=== PATIENT | female | born 2000 | race Caucasian/White ===

== ENCOUNTER 2023-10-30 19:45 | Inpatient (IN) ==
[2023-10-30 20:30] LABS: Basophils # (auto) 0.06 K/uL (0.00-0.20); Basophils % (auto) 0.8 %; Eosinophils # (auto) 0.07 K/uL (0.00-0.50); Eosinophils % (auto) 0.9 %; Hematocrit (blood only) 40.6 % (37.0-47.0); Hemoglobin 13.3 g/dl (12.0-16.0); Immature Granulocytes # (auto) 0.02 K/uL (0.01-0.20); Immature Granulocytes % (auto) 0.3 %; Lymphocytes # (auto) 3.27 K/uL (1.20-3.40); Lymphocytes % (auto) 41.9 %; Mean Corpuscular Hemoglobin 27.8 pg (25.0-34.0); Mean Corpuscular Hgb Conc 32.8 g/dL (32.0-36.0); Mean Corpuscular Volume 84.9 fL (80.0-100.0); Mean Platelet Volume 9.8 fL (9.4-12.4); Monocytes # (auto) 0.83 K/uL (0.11-0.59); Monocytes % (auto) 10.6 %; Neutrophils # (auto) 3.55 K/uL (1.40-6.50); Neutrophils % (auto) 45.5 %; Platelet Count 306 K/uL (130-400); RDW Coefficient of Variation 12.8 % (11.5-14.5); RDW Standard Deviation 39.4 fL (36.4-46.3); Red Blood Count 4.78 M/uL (4.20-5.40)
--- NOTE | 2023-10-30 20:40 | Emergency Department Note ---
History of Present Illness General Chief complaint: Neuro Symptoms/Deficit Stated complaint: DROOPING ON RT FACE, Time Seen by Provider: 10/30/23 19:53 History of Present Illness Provider complaint: Right-sided facial droop paresthesias 23-year-old female presents emergency department for right-sided facial droop and paresthesias. Patient states she woke up at 5 AM today and started noticing that she was having some right-sided facial droop and paresthesias in her right face. Patient states she went to the football game today and while taking pictures noticed that her face was drooping in the pictures. She reports no difficulty speaking. No difficulty walking. No trauma. No fever. No headache. No neck pain. Home Medications Medication Instructions Recorded Confirmed Type No Known Home Medications 10/30/23 10/30/23 History Allergies Allergy/AdvReac Type Severity Reaction Status Date / Time No Known Allergies Allergy Verified 10/30/23 20:01 Past Med/Surg History Problem List (Updated 10/30/23 @ 23:22 by Lupillo Amaya MD) Stroke-like symptoms (Acute) Lyme disease (Acute) No pertinent past medical history Medical History (Updated 10/30/23 @ 23:22 by Lupillo Amaya MD) No pertinent family history Family History Other No pertinent family history Social History Smoking Status: Never smoker Preferred Language: [place] Feels Safe at Home: Yes Physical Exam Vital Signs Vital Signs - 24 hr 10/30/23 19:49 10/30/23 20:04 10/30/23 21:12 Temperature 36.5 C Temperature Source Temporal Artery Scan Pulse Rate 116 H 91 H 83 Respiratory Rate 18 18 Respiratory Effort / Characteristics Non-Labored Spontaneous Respiratory Depth Normal Blood Pressure 147/93 H 128/52 L Blood Pressure Mean 111 77 Pulse Oximetry 100 100 Oxygen Delivery Method Room Air Room Air Sepsis Recent Fever Within 48 Hours No Sepsis New/Unexplained Change in Mental Status No Sepsis Action Taken by Nursing No Action Required Physical Exam HENT: Exam performed. -Head: Normocephalic and atraumatic. -Right Ear: External ear normal. No mastoid erythema -Left Ear: External ear normal. No mastoid erythema -Mouth/Throat: The oropharynx is clear and moist. No trismus in the jaw. No dental abscesses or uvula swelling. No oropharyngeal exudate or tonsillar abscesses. EYES: Conjunctivae and EOM are normal. Pupils are equal, round, and reactive to light. Right eye exhibits no discharge. Left eye exhibits no discharge. No scleral icterus. NECK: Normal range of motion. Neck supple. No JVD present. No spinous process tenderness present. No rigidity. No tracheal deviation and normal range of motion present. CV: Normal rate, regular rhythm, normal heart sounds and intact distal pulses. There is no peripheral edema. Palpable radial pulses bue. PULM/CHEST: Effort normal and breath sounds normal. No respiratory distress. No stridor. no wheezes. no rales. MUSC/SKEL: Normal range of motion. There is no peripheral edema, tenderness or deformity. NEURO: alert and oriented to person, place, and time. normal strength. No cranial nerve deficit or sensory deficit. Coordination and gait normal. GCS eye subscore is 4. GCS verbal subscore is 5. GCS motor subscore is 6. Cerebellar tests wnl. No clonus. NIHSS: 0 SKIN: Skin is warm and dry. not diaphoretic. PSYCH:normal mood and affect. Behavior is normal. Judgment and thought content normal. Course Course 1952: The patient was evaluated in room C6. A complete history and physical exam was performed Cardiac monitoring: An order was placed for continuous cardiac monitoring. The monitor shows a rate of 90 with sinus rhythm interpreted by nj 2225: Vital signs stable. Imaging is unremarkable. Labs are significant for Lyme positive.Repeat exam shows NIH SS of 0 no appreciable facial droop however the patient states she feels feels like her face is drooping. Patient be treated with doxycycline. Will admit the patient to the medicine service for MRIs and evaluation by neurology. Discussed case with [place] hospitalist Dr. Elder who states he will evaluate the patient for admission. Administered Medications Discontinued Medications Doxycycline Hyclate (Doxycycline Hyclate 100 Mg Cap) 100 mg PO NOW STA Stop: 10/30/23 22:24 Last Admin: 10/30/23 22:39 Dose: 100 mg Documented By: [facility] Ioversol (Optiray 320 125ml) 119 ml IV ONCE ONE Stop: 10/30/23 21:02 Last Admin: 10/30/23 21:01 Dose: 119 ml Documented By: LOBITO Medical Decision Making Laboratory Data Attestation: I reviewed the patient's lab results. 10/30/23 20:05 10/30/23 20:05 Lab Results 10/30/23 10/30/23 Range/Units 20:05 20:27 WBC 7.80 (4.8-10.8) K/ul RBC 4.78 (4.20-5.40) M/uL Hgb 13.3 (12.0-16.0) g/dl Hct 40.6 (37.0-47.0) % MCV 84.9 (80.0-100.0) fL MCH 27.8 (25.0-34.0) pg MCHC 32.8 (32.0-36.0) g/dL RDW Std Deviation 39.4 (36.4-46.3) fL RDW Coeff of Arcenio 12.8 (11.5-14.5) % Plt Count 306 (130-400) K/uL MPV 9.8 (9.4-12.4) fL Immature Gran % (Auto) 0.3 % Neut % (Auto) 45.5 % Lymph % (Auto) 41.9 % Hitchcock % (Auto) 10.6 % Eos % (Auto) 0.9 % Baso % (Auto) 0.8 % Neut # (Auto) 3.55 (1.40-6.50) K/uL Lymph # (Auto) 3.27 (1.20-3.40) K/uL Hitchcock # (Auto) 0.83 H (0.11-0.59) K/uL Eos # (Auto) 0.07 (0.00-0.50) K/uL Baso # (Auto) 0.06 (0.00-0.20) K/uL Immature Gran # (Auto) 0.02 (0.01-0.20) K/uL PT 11.7 (9.0-12.0) Seconds INR 1.1 (0.9-1.1) APTT 29 (21-31) Seconds PTT Ratio 1.1 Sodium 137 (136-145) mmol/L Potassium 3.8 (3.5-5.1) mmol/L Chloride 104 (98-107) mmol/L Carbon Dioxide 27 (21-32) mmol/L Anion Gap 6 (3-11) BUN 12 (6-23) mg/dl Creatinine 0.85 (0.6-1.2) mg/dl Est Cr Clr Drug Dosing 96.0 ml/min Est GFR ( Amer) 110.4 ml/min Est GFR (Non-Af Amer) 95.2 ml/min BUN/Creatinine Ratio 14.1 (10-20) Glucose 94 (70-99(Fasting)) mg/dl POC Glucose 92 (70-99) mg/dl Calcium 9.6 (8.6-10.3) mg/dl Magnesium 2.0 (1.7-2.4) mg/dl Total Bilirubin 0.4 (0.2-1.0) mg/dl AST 20 (13-39) U/L ALT 22 (7-52) U/L Alkaline Phosphatase 66 (34-104) U/L Troponin I High Sens < 2.3 (0-14) pg/ml Total Protein 8.2 (6.0-8.3) gm/dl Albumin 4.9 (3.4-5.0) gm/dl Globulin 3.3 (2.5-4.0) gm/dl Albumin/Globulin Ratio 1.5 (0.9-2) HCG, Quant < 1 mIU/ml Anaplasma Smear See Comment Babesia Smear See Comment Lyme Disease Screen Positive H (Negative) Lyme Tier 2 IgG Confirm Positive H (Negative) Lyme Tier 2 IgM Confirm Positive H (Negative) Blood Type O Positive Antibody Screen NEGATIVE Imaging Data Attestation: I personally reviewed and interpreted this imaging study as follows: My Impression: Chest x-ray negative. Airway clear. No pneumothorax. No consolidation. No cardiomegaly or cephalization.. No free air under the diaphragm. No fractures of the skeletal structures. Radiologist's Impression: Head CT 10/30/23 20:00 CR Exam(s): CT HEAD Without Contrast EXAM: CT Head Without Intravenous Contrast CLINICAL HISTORY: Reason for exam: neuro deficit, acute stroke suspected. TECHNIQUE: Axial computed tomography images of the head/brain without intravenous contrast. Automated exposure control was utilized for the study. A dose lowering technique was utilized adhering to the principles of ALARA. COMPARISON: No relevant prior studies available. FINDINGS: Brain: Unremarkable. No hemorrhage. No significant white matter disease. No edema. Ventricles: Unremarkable. No ventriculomegaly. Bones/joints: Unremarkable. No acute fracture. Soft tissues: Unremarkable. Sinuses: Unremarkable as visualized. No acute sinusitis. Mastoid air cells: Unremarkable as visualized. No mastoid effusion. IMPRESSION: Normal head/brain CT. Communications: Call Doctor Stroke Electronically signed by: Tarik Ramires MD 10/30/23 21:28 PM Head CTA 10/30/23 20:00 CR Exam(s): CTA HEAD With Contrast IV Amt: 119 cc opti 320 EXAM: CT Angiography Head With Intravenous Contrast CLINICAL HISTORY: Reason for exam: neuro deficit, acute stroke suspected. TECHNIQUE: Axial computed tomographic angiography images of the head with intravenous contrast. Automated exposure control was utilized for the study. A dose lowering technique was utilized adhering to the principles of ALARA. MIP reconstructed images were created and reviewed. CONTRAST: Patient received 119 cc opti 320 of IV contrast COMPARISON: No relevant prior studies available. FINDINGS: Right internal carotid artery: No acute findings. Intracranial segment is patent with no significant stenosis. No aneurysm. Right anterior cerebral artery: Unremarkable. No occlusion or significant stenosis. No aneurysm. Right middle cerebral artery: Unremarkable. No occlusion or significant stenosis. No aneurysm. Right posterior cerebral artery: Unremarkable. No occlusion or significant stenosis. No aneurysm. Right vertebral artery: Unremarkable as visualized. Left internal carotid artery: No acute findings. Intracranial segment is patent with no significant stenosis. No aneurysm. Left anterior cerebral artery: Unremarkable. No occlusion or significant stenosis. No aneurysm. Left middle cerebral artery: Unremarkable. No occlusion or significant stenosis. No aneurysm. Left posterior cerebral artery: Unremarkable. No occlusion or significant stenosis. No aneurysm. Left vertebral artery: Unremarkable as visualized. Basilar artery: Unremarkable. No occlusion or significant stenosis. No aneurysm. IMPRESSION: Normal head CTA. Communications: Call Doctor Stroke Electronically signed by: Tarik Ramires MD 10/30/23 21:29 PM Neck CTA 10/30/23 20:00 CR Exam(s): CTA NECK With Contrast IV Amt: 119 cc opti 320 EXAM: CT Angiography Neck With Intravenous Contrast CLINICAL HISTORY: Reason for exam: neuro deficit, acute stroke suspected. TECHNIQUE: Routine carotid CT angiography protocol was performed with intravenous contrast. NASCET criteria using the distal ICAs for comparison were used for evaluation of stenoses. Automated exposure control was utilized for the study. A dose lowering technique was utilized adhering to the principles of ALARA. MIP reconstructed images were created and reviewed. CONTRAST: Patient received 119 cc opti 320 of IV contrast COMPARISON: None. FINDINGS: VASCULATURE: Right common carotid artery: Unremarkable. No occlusion or significant stenosis. No dissection. Right internal carotid artery: Unremarkable. Extracranial segment is patent with no occlusion or significant stenosis. No dissection. Right external carotid artery: Unremarkable. No occlusion. Right vertebral artery: Unremarkable. No occlusion or significant stenosis. No dissection. Left common carotid artery: Unremarkable. No occlusion or significant stenosis. No dissection. Left internal carotid artery: Unremarkable. Extracranial segment is patent with no occlusion or significant stenosis. No dissection. Left external carotid artery: Unremarkable. No occlusion. Left vertebral artery: Unremarkable. No occlusion or significant stenosis. No dissection. NECK: Bones/joints: Unremarkable. No acute fracture. Soft tissues: Unremarkable. Lung apices: Clear. CAROTID STENOSIS REFERENCE USING NASCET CRITERIA: % ICA stenosis = (1 - narrowest ICA diameter/diameter of distal cervical ICA) x 100. Mild - <50% stenosis. Moderate - 50-69% stenosis. Severe - 70-94% stenosis. Near occlusion - 95-99% stenosis. Occluded - 100% stenosis. IMPRESSION: Negative CTA neck. Communications: Call Doctor Stroke Electronically signed by: Tarik Ramires MD 10/30/23 21:30 PM ECG Data Attestation: I personally reviewed and interpreted this ECG as follows: Rate (beats per minute): 81 Rhythm: + normal sinus ECG Intervals/blocks: + Normal MS and + Normal QT-c ECG ST segments: + Normal ST segments Additional Comments: QRS 70 MDM Narrative 3: The patient was evaluated in room C6. A complete history and physical exam was performed Cardiac monitoring: An order was placed for continuous cardiac monitoring. The monitor shows a rate of 90 with sinus rhythm interpreted by me 2225: Vital signs stable. Imaging is unremarkable. Labs are significant for Lyme positive.Repeat exam shows NIH SS of 0 no appreciable facial droop however the patient states she feels feels like her face is drooping. Patient be treated with doxycycline. Will admit the patient to the medicine service for MRIs and evaluation by neurology. Discussed case with [place] hospitalist Dr. Elder who states he will evaluate the patient for admission. Impression & Plan Lyme disease, Stroke-like symptoms Discharge Plan Visit Data Chief Complaint: Neuro Symptoms/Deficit Stated Complaint: DROOPING ON RT FACE, ED Provider: Lupillo Amaya Discharge Problem: Lyme disease, Stroke-like symptoms Patient Disposition: Being Evaluated by Hospitalist Forms Stand Alone Forms: [facility] Prescriptions Prescriptions: No Action No Known Home Medications Referrals Referrals: PCP,NO [Physician] -
[2023-10-30 20:46] LABS: Alanine Aminotransferase 22 U/L (7-52); Albumin Globulin Ratio 1.5 (0.9-2); Albumin Level 4.9 gm/dl (3.4-5.0); Alkaline Phosphatase 66 U/L (34-104); Anion Gap 6 (3-11); Aspartate Aminotransferase 20 U/L (13-39); BUN Creatinine Ratio 14.1 (10-20); Bilirubin,Total 0.4 mg/dl (0.2-1.0); Blood Urea Nitrogen 12 mg/dl (6-23); Calcium 9.6 mg/dl (8.6-10.3); Carbon Dioxide 27 mmol/L (21-32); Chloride 104 mmol/L (98-107); Est GFR (African American) 110.4 ml/min; Est GFR (Non-African American) 95.2 ml/min; Globulin 3.3 gm/dl (2.5-4.0); Glucose 94 mg/dl (70-99(Fasting)); Potassium 3.8 mmol/L (3.5-5.1); Sodium 137 mmol/L (136-145); Total Protein 8.2 gm/dl (6.0-8.3)
[2023-10-30 20:52] LABS: Troponin I High Sensitivity < 2.3 pg/ml (0-14)
[2023-10-30 20:58] LABS: INR 1.1 (0.9-1.1); Partial Thromboplastin Ratio 1.1; Partial Thromboplastin Time 29 Seconds (21-31); Prothrombin Time 11.7 Seconds (9.0-12.0)
[2023-10-30] MEDS: OPTIRAY 320 125ml IV ONE (21:01)
--- NOTE | 2023-10-30 21:29 | CT Scan Report ---
Exam(s): CT HEAD Without Contrast EXAM: CT Head Without Intravenous Contrast CLINICAL HISTORY: Reason for exam: neuro deficit, acute stroke suspected. TECHNIQUE: Axial computed tomography images of the head/brain without intravenous contrast. Automated exposure control was utilized for the study. A dose lowering technique was utilized adhering to the principles of ALARA. COMPARISON: No relevant prior studies available. FINDINGS: Brain: Unremarkable. No hemorrhage. No significant white matter disease. No edema. Ventricles: Unremarkable. No ventriculomegaly. Bones/joints: Unremarkable. No acute fracture. Soft tissues: Unremarkable. Sinuses: Unremarkable as visualized. No acute sinusitis. Mastoid air cells: Unremarkable as visualized. No mastoid effusion. IMPRESSION: Normal head/brain CT. Communications: Call Doctor Stroke Electronically signed by: Tarik Ramires MD 10/30/23 21:28 PM
--- NOTE | 2023-10-30 21:30 | CT Scan Report ---
Exam(s): CTA HEAD With Contrast IV Amt: 119 cc opti 320 EXAM: CT Angiography Head With Intravenous Contrast CLINICAL HISTORY: Reason for exam: neuro deficit, acute stroke suspected. TECHNIQUE: Axial computed tomographic angiography images of the head with intravenous contrast. Automated exposure control was utilized for the study. A dose lowering technique was utilized adhering to the principles of ALARA. MIP reconstructed images were created and reviewed. CONTRAST: Patient received 119 cc opti 320 of IV contrast COMPARISON: No relevant prior studies available. FINDINGS: Right internal carotid artery: No acute findings. Intracranial segment is patent with no significant stenosis. No aneurysm. Right anterior cerebral artery: Unremarkable. No occlusion or significant stenosis. No aneurysm. Right middle cerebral artery: Unremarkable. No occlusion or significant stenosis. No aneurysm. Right posterior cerebral artery: Unremarkable. No occlusion or significant stenosis. No aneurysm. Right vertebral artery: Unremarkable as visualized. Left internal carotid artery: No acute findings. Intracranial segment is patent with no significant stenosis. No aneurysm. Left anterior cerebral artery: Unremarkable. No occlusion or significant stenosis. No aneurysm. Left middle cerebral artery: Unremarkable. No occlusion or significant stenosis. No aneurysm. Left posterior cerebral artery: Unremarkable. No occlusion or significant stenosis. No aneurysm. Left vertebral artery: Unremarkable as visualized. Basilar artery: Unremarkable. No occlusion or significant stenosis. No aneurysm. IMPRESSION: Normal head CTA. Communications: Call Doctor Stroke Electronically signed by: Tarik Ramires MD 10/30/23 21:29 PM
[2023-10-30 21:31] LABS: Lyme Screen Rflx Confirmation Positive (Negative)
--- NOTE | 2023-10-30 21:31 | CT Scan Report ---
Exam(s): CTA NECK With Contrast IV Amt: 119 cc opti 320 EXAM: CT Angiography Neck With Intravenous Contrast CLINICAL HISTORY: Reason for exam: neuro deficit, acute stroke suspected. TECHNIQUE: Routine carotid CT angiography protocol was performed with intravenous contrast. NASCET criteria using the distal ICAs for comparison were used for evaluation of stenoses. Automated exposure control was utilized for the study. A dose lowering technique was utilized adhering to the principles of ALARA. MIP reconstructed images were created and reviewed. CONTRAST: Patient received 119 cc opti 320 of IV contrast COMPARISON: None. FINDINGS: VASCULATURE: Right common carotid artery: Unremarkable. No occlusion or significant stenosis. No dissection. Right internal carotid artery: Unremarkable. Extracranial segment is patent with no occlusion or significant stenosis. No dissection. Right external carotid artery: Unremarkable. No occlusion. Right vertebral artery: Unremarkable. No occlusion or significant stenosis. No dissection. Left common carotid artery: Unremarkable. No occlusion or significant stenosis. No dissection. Left internal carotid artery: Unremarkable. Extracranial segment is patent with no occlusion or significant stenosis. No dissection. Left external carotid artery: Unremarkable. No occlusion. Left vertebral artery: Unremarkable. No occlusion or significant stenosis. No dissection. NECK: Bones/joints: Unremarkable. No acute fracture. Soft tissues: Unremarkable. Lung apices: Clear. CAROTID STENOSIS REFERENCE USING NASCET CRITERIA: % ICA stenosis = (1 - narrowest ICA diameter/diameter of distal cervical ICA) x 100. Mild - <50% stenosis. Moderate - 50-69% stenosis. Severe - 70-94% stenosis. Near occlusion - 95-99% stenosis. Occluded - 100% stenosis. IMPRESSION: Negative CTA neck. Communications: Call Doctor Stroke Electronically signed by: Tarik Ramires MD 10/30/23 21:30 PM
[2023-10-30 22:05] LABS: Lyme Ab IgG 2nd Tier Confirm Positive (Negative)
[2023-10-30 22:06] LABS: Lyme Ab IgM 2nd Tier Confirm Positive (Negative)
[2023-10-30] MEDS: DOXYCYCLINE HYCLATE 100 MG CAP PO STA (22:39)
--- NOTE | 2023-10-30 23:23 | History & Physical Report ---
Date of Service October 30, 2023 Assessment & Plan (1) Stroke-like symptoms: Plan: 23-year-old female with no significant past medical history comes because of right facial droop starting today morning around 5 AM. When patient woke up in the morning she noticed some slight right facial droop. She thought it was from stress. She went to football match. No other weakness or ybwm-meb-esupdxg feelings. She walked a lot during the day. Even in the photograph she noticed some slight right facial droop and decided come to the ER. Patient states she was able to eat solid food okay. But states she has some trouble swallowing liquids through straws. And when blowing the air out she noticed it was somewhat leaking from the right cheek. Her speech is okay. Denies any fevers. No headache. No dizziness. Able to close eyes tight. Able to raise eyebrows ok. Denies any numbness in the face. No fevers. No cough. No chest pain or shortness of breath. No nausea. No abdominal pain. Normal bowel and bladder movements. Her Lyme screen came back positive in the ER. Her CT head and CTA head and neck were unremarkable. Patient states on August 25 she picked up tick from her body but she thinks it was not there for long. Denies any rash. Curr ently resting comfortably and hemodynamic stable. 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 for further recommendation Lyme disease Doxy and Rocephin DVT prophylaxis SCDs Disposition Telemetry Full code. History of Present Illness Chief Complaint: Right facial droop Primary Care Provider: Aisha Rojas MD 23-year-old female with no significant past medical history comes because of right facial droop starting today morning around 5 AM. When patient woke up in the morning she noticed some slight right facial droop. She thought it was from stress. She went to football match. No other weakness or cily-ivs-rlifgvz feelings. She walked a lot during the day. Even in the photograph she noticed some slight right facial droop and decided come to the ER. Patient states she was able to eat solid food okay. But states she has some trouble swallowing liquids through straws. And when blowing the air out she noticed it was somewhat leaking from the right cheek. Her speech is okay. Denies any fevers. No headache. No dizziness. Able to close eyes tight. Able to raise eyebrows ok. Denies any numbness in the face. No fevers. No cough. No chest pain or shortness of breath. No nausea. No abdominal pain. Normal bowel and bladder movements. Her Lyme screen came back positive in the ER. Her CT head and CTA head and neck were unremarkable. Patient states on August 25 she picked up tick from her body but she thinks it was not there for long. Denies any rash. Currently resting comfortably and hemodynamic stable. Past medical history. None as per patient Past surgical history. None as per patient. Social history. Denies smoking. Alcohol occasional. No drug use. Family history. Grandfather had colon cancer. Allergies Allergy/AdvReac Type Severity Reaction Status Date / Time No Known Allergies Allergy Verified 10/30/23 20:01 Home Medications Medication Instructions Recorded Confirmed Type No Known Home Medications 10/30/23 10/30/23 History Past Med/Surg History Problem List (Updated 10/30/23 @ 23:22 by Lupillo Amaya MD) Stroke-like symptoms (Acute) Lyme disease (Acute) No pertinent past medical history Medical History (Updated 10/30/23 @ 23:22 by Lupillo Amaya MD) No pertinent family history Family History Other No pertinent family history Social History Smoking Status: Never smoker Hx Alcohol Use: Yes Hx Substance Use: No Preferred Language: Occitan Communication Ability: Effective Pick Up Driver Required: No Beliefs That Will Affect Care: None Current Living Situation: Significant Other Other Information That Helps Us Care for You: No Feels Safe at Home: Yes Review of Systems Review of Systems: All systems reviewed & are unremarkable except as noted in HPI & below Physical Exam Physical Exam: General- Not in distress Head- atraumatic Eyes- PERRL. ENT- oropharynx clear Neck- supple, no JVD. Lungs- clear to auscultation no wheezing or crackles Heart- regular rate and rhythm; no murmur, no gallop. Abdomen- normal bowel sounds, soft, nontender, no distension Extremities- no pretibial edema, no erytehma seen Neuro- alert, oriented x 3; PERRL, EOMI; subtle right facial droop; no dysarthria; motor 5/5 bilaterally; co ordination of movements normal,No pronator drift, Sensations intact, :Position sense intact. Results & Data Results & Data Vital Signs (Past 12 Hours) Vital Signs Temp Pulse Resp BP Pulse Ox O2 Del Method 10/30/23 21:12 83 18 128/52 L 100 Room Air 10/30/23 20:04 91 H 10/30/23 19:49 36.5 C 116 H 18 147/93 H 100 Room Air Diagnostic Findings Laboratory Results WBC 7.80 K/ul (4.8-10.8) 10/30/23 20:05 RBC 4.78 M/uL (4.20-5.40) 10/30/23 20:05 Hgb 13.3 g/dl (12.0-16.0) 10/30/23 20:05 Hct 40.6 % (37.0-47.0) 10/30/23 20:05 MCV 84.9 fL (80.0-100.0) 10/30/23 20:05 MCH 27.8 pg (25.0-34.0) 10/30/23 20:05 MCHC 32.8 g/dL (32.0-36.0) 10/30/23 20:05 RDW Std Deviation 39.4 fL (36.4-46.3) 10/30/23 20:05 RDW Coeff of Arcenio 12.8 % (11.5-14.5) 10/30/23 20:05 Plt Count 306 K/uL (130-400) 10/30/23 20:05 MPV 9.8 fL (9.4-12.4) 10/30/23 20:05 Immature Gran % (Auto) 0.3 % 10/30/23 20:05 Neut % (Auto) 45.5 % 10/30/23 20:05 Lymph % (Auto) 41.9 % 10/30/23 20:05 [place] % (Auto) 10.6 % 10/30/23 20:05 Eos % (Auto) 0.9 % 10/30/23 20:05 Baso % (Auto) 0.8 % 10/30/23 20:05 Neut # (Auto) 3.55 K/uL (1.40-6.50) 10/30/23 20:05 Lymph # (Auto) 3.27 K/uL (1.20-3.40) 10/30/23 20:05 [place] # (Auto) 0.83 K/uL (0.11-0.59) H 10/30/23 20:05 Eos # (Auto) 0.07 K/uL (0.00-0.50) 10/30/23 20:05 Baso # (Auto) 0.06 K/uL (0.00-0.20) 10/30/23 20:05 Immature Gran # (Auto) 0.02 K/uL (0.01-0.20) 10/30/23 20:05 PT 11.7 Seconds (9.0-12.0) 10/30/23 20:05 INR 1.1 (0.9-1.1) 10/30/23 20:05 APTT 29 Seconds (21-31) 10/30/23 20:05 PTT Ratio 1.1 10/30/23 20:05 Sodium 137 mmol/L (136-145) 10/30/23 20:05 Potassium 3.8 mmol/L (3.5-5.1) 10/30/23 20:05 Chloride 104 mmol/L (98-107) 10/30/23 20:05 Carbon Dioxide 27 mmol/L (21-32) 10/30/23 20:05 Anion Gap 6 (3-11) 10/30/23 20:05 BUN 12 mg/dl (6-23) 10/30/23 20:05 Creatinine 0.85 mg/dl (0.6-1.2) 10/30/23 20:05 Est Cr Clr Drug Dosing 96.0 ml/min 10/30/23 20:05 Est GFR ( Amer) 110.4 ml/min 10/30/23 20:05 Est GFR (Non-Af Amer) 95.2 ml/min 10/30/23 20:05 BUN/Creatinine Ratio 14.1 (10-20) 10/30/23 20:05 Glucose 94 mg/dl (70-99(Fasting)) 10/30/23 20:05 POC Glucose 92 mg/dl (70-99) 10/30/23 20:27 Calcium 9.6 mg/dl (8.6-10.3) 10/30/23 20:05 Magnesium 2.0 mg/dl (1.7-2.4) 10/30/23 20:05 Total Bilirubin 0.4 mg/dl (0.2-1.0) 10/30/23 20:05 AST 20 U/L (13-39) 10/30/23 20:05 ALT 22 U/L (7-52) 10/30/23 20:05 Alkaline Phosphatase 66 U/L (34-104) 10/30/23 20:05 Troponin I High Sens < 2.3 pg/ml (0-14) 10/30/23 20:05 Total Protein 8.2 gm/dl (6.0-8.3) 10/30/23 20:05 Albumin 4.9 gm/dl (3.4-5.0) 10/30/23 20:05 Globulin 3.3 gm/dl (2.5-4.0) 10/30/23 20:05 Albumin/Globulin Ratio 1.5 (0.9-2) 10/30/23 20:05 HCG, Quant < 1 mIU/ml 10/30/23 20:05 Anaplasma Smear See Comment 10/30/23 20:05 Babesia Smear See Comment 10/30/23 20:05 Lyme Disease Screen Positive (Negative) H 10/30/23 20:05 Lyme Tier 2 IgG Confirm Positive (Negative) H 10/30/23 20:05 Lyme Tier 2 IgM Confirm Positive (Negative) H 10/30/23 20:05 Blood Type O Positive 10/30/23 20:05 Antibody Screen NEGATIVE 10/30/23 20:[address] 10/30/23 20:00 CR Exam(s): CT HEAD Without Contrast EXAM: CT Head Without Intravenous Contrast CLINICAL HISTORY: Reason for exam: neuro deficit, acute stroke suspected. TECHNIQUE: Axial computed tomography images of the head/brain without intravenous contrast. Automated exposure control was utilized for the study. A dose lowering technique was utilized adhering to the principles of ALARA. COMPARISON: No relevant prior studies available. FINDINGS: Brain: Unremarkable. No hemorrhage. No significant white matter disease. No edema. Ventricles: Unremarkable. No ventriculomegaly. Bones/joints: Unremarkable. No acute fracture. Soft tissues: Unremarkable. Sinuses: Unremarkable as visualized. No acute sinusitis. Mastoid air cells: Unremarkable as visualized. No mastoid effusion. IMPRESSION: Normal head/brain CT. Communications: Call Doctor Stroke Electronically signed by: Tarik Ramires MD 10/30/23 21:28 PM Head CTA 10/30/23 20:00 CR Exam(s): CTA HEAD With Contrast IV Amt: 119 cc opti 320 EXAM: CT Angiography Head With Intravenous Contrast CLINICAL HISTORY: Reason for exam: neuro deficit, acute stroke suspected. TECHNIQUE: Axial computed tomographic angiography images of the head with intravenous contrast. Automated exposure control was utilized for the study. A dose lowering technique was utilized adhering to the principles of ALARA. MIP reconstructed images were created and reviewed. CONTRAST: Patient received 119 cc opti 320 of IV contrast COMPARISON: No relevant prior studies available. FINDINGS: Right internal carotid artery: No acute findings. Intracranial segment is patent with no significant stenosis. No aneurysm. Right anterior cerebral artery: Unremarkable. No occlusion or significant stenosis. No aneurysm. Right middle cerebral artery: Unremarkable. No occlusion or significant stenosis. No aneurysm. Right posterior cerebral artery: Unremarkable. No occlusion or significant stenosis. No aneurysm. Right vertebral artery: Unremarkable as visualized. Left internal carotid artery: No acute findings. Intracranial segment is patent with no significant stenosis. No aneurysm. Left anterior cerebral artery: Unremarkable. No occlusion or significant stenosis. No aneurysm. Left middle cerebral artery: Unremarkable. No occlusion or significant stenosis. No aneurysm. Left posterior cerebral artery: Unremarkable. No occlusion or significant stenosis. No aneurysm. Left vertebral artery: Unremarkable as visualized. Basilar artery: Unremarkable. No occlusion or significant stenosis. No aneurysm. IMPRESSION: Normal head CTA. Communications: Call Doctor Stroke Electronically signed by: Tarik Ramires MD 10/30/23 21:29 PM Neck CTA 10/30/23 20:00 CR Exam(s): CTA NECK With Contrast IV Amt: 119 cc opti 320 EXAM: CT Angiography Neck With Intravenous Contrast CLINICAL HISTORY: Reason for exam: neuro deficit, acute stroke suspected. TECHNIQUE: Routine carotid CT angiography protocol was performed with intravenous contrast. NASCET criteria using the distal ICAs for comparison were used for evaluation of stenoses. Automated exposure control was utilized for the study. A dose lowering technique was utilized adhering to the principles of ALARA. MIP reconstructed images were created and reviewed. CONTRAST: Patient received 119 cc opti 320 of IV contrast COMPARISON: None. FINDINGS: VASCULATURE: Right common carotid artery: Unremarkable. No occlusion or significant stenosis. No dissection. Right internal carotid artery: Unremarkable. Extracranial segment is patent with no occlusion or significant stenosis. No dissection. Right external carotid artery: Unremarkable. No occlusion. Right vertebral artery: Unremarkable. No occlusion or significant stenosis. No dissection. Left common carotid artery: Unremarkable. No occlusion or significant stenosis. No dissection. Left internal carotid artery: Unremarkable. Extracranial segment is patent with no occlusion or significant stenosis. No dissection. Left external carotid artery: Unremarkable. No occlusion. Left vertebral artery: Unremarkable. No occlusion or significant stenosis. No dissection. NECK: Bones/joints: Unremarkable. No acute fracture. Soft tissues: Unremarkable. Lung apices: Clear. CAROTID STENOSIS REFERENCE USING NASCET CRITERIA: % ICA stenosis = (1 - narrowest ICA diameter/diameter of distal cervical ICA) x 100. Mild - <50% stenosis. Moderate - 50-69% stenosis. Severe - 70-94% stenosis. Near occlusion - 95-99% stenosis. Occluded - 100% stenosis. IMPRESSION: Negative CTA neck. Communications: Call Doctor Stroke Electronically signed by: Tarik Ramires MD 10/30/23 21:30 PM ECG Additional Comments: ECG. Normal sinus rhythm rate of 81. No acute ST changes seen. Code Status & VTE Plan VTE Prophylaxis Plan VTE Prophylaxis will be ordered: Yes
[2023-10-31] MEDS ORDERED: PHARMACIST DISCHARGE MED REC CONSULT PRN (01:01)
[2023-10-31] MEDS ORDERED: NITROGLYCERIN SL 0.4 MG/TAB TAB SL PRN (01:01)
[2023-10-31] MEDS ORDERED: ACETAMINOPHEN 325 MG TAB PO PRN (01:01)
[2023-10-31] MEDS: cefTRIAXone SODIUM 2,000 MG/50 ML BAG IV SCH (01:59)
[2023-10-31] MEDS: SODIUM CHLORIDE 0.9% 1,000 ML IV SCH (01:59)
[2023-10-31 07:40] LABS: Basophils # (auto) 0.06 K/uL (0.00-0.20); Basophils % (auto) 0.4 %; Eosinophils # (auto) 0.07 K/uL (0.00-0.50); Eosinophils % (auto) 0.5 %; Hematocrit (blood only) 37.9 % (37.0-47.0); Hemoglobin 12.4 g/dl (12.0-16.0); Immature Granulocytes # (auto) 0.04 K/uL (0.01-0.20); Immature Granulocytes % (auto) 0.3 %; Lymphocytes # (auto) 2.08 K/uL (1.20-3.40); Lymphocytes % (auto) 15.4 %; Mean Corpuscular Hemoglobin 27.7 pg (25.0-34.0); Mean Corpuscular Hgb Conc 32.7 g/dL (32.0-36.0); Mean Corpuscular Volume 84.6 fL (80.0-100.0); Mean Platelet Volume 9.8 fL (9.4-12.4); Monocytes # (auto) 1.05 K/uL (0.11-0.59); Monocytes % (auto) 7.7 %; Neutrophils # (auto) 10.25 K/uL (1.40-6.50); Neutrophils % (auto) 75.7 %; Platelet Count 268 K/uL (130-400); RDW Coefficient of Variation 12.9 % (11.5-14.5); RDW Standard Deviation 39.8 fL (36.4-46.3); Red Blood Count 4.48 M/uL (4.20-5.40); White Blood Count 13.55 K/ul (4.8-10.8)
--- NOTE | 2023-10-31 07:41 | XRay Report ---
XR chest 1V portable HISTORY: 23 years-old Female neuro deficit, acute stroke suspected acute strokelike symptoms COMPARISON: 10/30/2018 TECHNIQUE: AP view of the chest FINDINGS: Heart size is normal. The lungs are clear. No pneumothorax or pleural effusion. The bones appear norm al. IMPRESSION: Normal exam. ACT 112: Negative or not required by law. The above report was generated using voice recognition software. It may contain grammatical, syntax o r spelling errors. Electronically signed by: Tera Morton M.D. 10/31/2023 7:40 AM
[2023-10-31 07:59] LABS: Pregnancy Test, Urine Negative (Negative)
[2023-10-31 07:59] LABS: BUN Creatinine Ratio 12.5 (10-20); Calcium 8.9 mg/dl (8.6-10.3); Chol HDL Ratio 2.6 (0-5); Creatinine Clr Calc Pharmacy 109.2 ml/min; Est GFR (African American) 134.9 ml/min; Est GFR (Non-African American) 116.4 ml/min; Potassium 3.9 mmol/L (3.5-5.1)
[2023-10-31] MEDS: DOXYCYCLINE HYCLATE 100 MG CAP PO SCH (08:26)
[2023-10-31 08:42] LABS: Estimated Average Glucose 123 mg/dl; Hemoglobin A1C 5.9 % (4.5-5.6)
[2023-10-31 09:26] LABS: Amphetamines+Metham, Urine Neg (Neg); Barbiturates, Urine Neg (Neg); Benzodiazepine, Urine Neg (Neg); Cocaine, Urine Neg (Neg); Fentanyl, Urine Neg (Neg); MDMA (Ecstacy), Urine Neg (Neg); Marijuana, Urine Neg (Neg); Methadone, Urine Neg (Neg); Opiate, Urine Neg (Neg); Phencyclidine, Urine Neg (Neg)
--- NOTE | 2023-10-31 09:51 | Neurology Consultation ---
Date of Consultation October 31, 2023 Assessment & Plan (1) Lyme disease: Emily Seth is a 23 yo F presenting with a R bells palsy secondary to lyme disease. No complicating features, facial weakness is mild. -- Doxycyline for 21 days -- Prednisone 40mg x5 days, no taper -- Eye precautions to prevent corneal abrasion -- No further neurologic workup recommended Telehealth Consultation Telehealth Information Telehealth Information: I performed this visit using a real-time telehealth connection between my location and the patients location ([facility]). After connecting through interactive tele-video, patient was identified by name and date of and/or wristband check.Patient (or authorized healthcare technical account representative) was informed that this was a telemedicine visit and it was being conducted confidentially over secure lines. My office door was closed and no one else was present in the room with me.Patient (or authorized healthcare technical account representative) provided consent to proceed with the visit, expressed an understanding of privacy and security of the telemedicine visit, and gave permission to have a hospital technical account representative in the room in order to assist with the visit and to conduct portions of the visit, as needed. I informed the patient (or authorized healthcare technical account representative) that I reviewed their record and presented the opportunity for them to ask any questions regarding the visit today. The patient agreed to participate. History of Present Illness Reason for Consultation: R facial droop Requesting Physician: Dr. Rachel Attending Physician: Will Rachel MD History of Present Illness Emily Seth is a 23 yo F presenting with R facial droop, tested positive for lyme disease in the ED. She reports no other symptoms, no headache, no appendicular numbness or weakness, no change in speech or vision. Allergies Allergy/AdvReac Type Severity Reaction Status Date / Time No Known Allergies Allergy Verified 10/30/23 20:01 Home Medications Medication Instructions Recorded Confirmed Type No Known Home Medications 10/30/23 10/30/23 History Patient History Medical History (Updated 10/30/23 @ 23:22 by Lupillo Amaya MD) No pertinent family history Family History Other No pertinent family history Social History Smoking Status: Never smoker Hx Alcohol Use: Yes Hx Substance Use: No Preferred Language: Slovenian Communication Ability: Effective Nursery Technician Required: No Beliefs That Will Affect Care: None Current Living Situation: Significant Other Other Information That Helps Us Care for You: No Feels Safe at Home: Yes Review of Systems +R facial weakness Physical Exam +R peripheral facial weakness Results & Data Vital Signs (Past 12 Hours) Vital Signs Temp Pulse Pulse Resp BP Pulse Ox O2 Del Method 10/31/23 07:36 95 H 10/31/23 07:33 36.7 C 81 20 112/65 96 Room Air 10/31/23 04:29 36.4 C L 70 18 114/68 98 Room Air 10/31/23 01:04 73 10/31/23 01:04 36.7 C 74 18 112/75 100 Room Air 10/31/23 00:40 Room Air Laboratory Results +lyme titer Diagnostic Findings CT/CTA unremarkable
[2023-10-31] MEDS: predniSONE 20 MG TAB PO SCH (10:35)
[2023-10-31 11:13] VITALS: BP 113/71; PULSE 84; RESP 18; TEMP 97.9; O2SAT 100
--- NOTE | 2023-10-31 11:30 | Hospitalist Progress Note ---
Date of Service October 31, 2023 Assessment & Plan (1) Lyme disease: Plan: 23-year-old female with no significant past medical history comes because of right facial droop starting today morning around 5 AM. When patient woke up in the morning she noticed some slight right facial droop. She thought it was from stress. She went to football match. No other weakness or daoo-buo-lryvmdu feelings. She walked a lot during the day. Even in the photograph she noticed some slight right facial droop and decided come to the ER. Patient states she was able to eat solid food okay. But states she has some trouble swallowing liquids through straws. And when blowing the air out she noticed it was somewhat leaking from the right cheek. Her speech is okay. Denies any fevers. No headache. No dizziness. Able to close eyes tight. Able to raise eyebrows ok. Denies any numbness in the face. No fevers. No cough. No chest pain or shortness of breath. No nausea. No abdominal pain. Normal bowel and bladder movements. Her Lyme screen came back positive in the ER. Her CT head and CTA head and neck were unremarkable. Patient states on August 25 she picked up tick from her body but she thinks it was not there for long. Denies any rash. Currently resting comfortably and hemodynamic stable. 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 Admission and Anticipated Discharge Date Admission Date: October 30, 2023 Subjective 10/31/2023 Patient was seen and examined in telemetry unit in presence of the She still has right facial droop without any other neurological symptoms She has been eating and drinking well and denies any other significant symptoms She was seen by the neurologist and advised that she could go home Review of Systems Review of Systems: All systems reviewed and unremarkable except as noted below Physical Exam Physical Exam: Lying in bed without any distress Constitutional: average body habitus; not ill appearing Eyes: PERRL, conjunctivae normal, anicteric sclerae ENMT: external ear and nose normal, oropharynx normal Neck: trachea midline, no thyromegaly Respiratory: no respiratory distress Auscultation: lungs clear to auscultation bilaterally Cardiovascular: Rate/Rhythm: regular rate and regular rhythm; not tachycardic Heart Sounds: normal S1 and normal S2; no murmur Extremities: no edema Gastrointestinal (Abdomen): Inspection/Auscultation: normal bowel sounds; abdomen not distended Percussion/Palpation: abdomen soft; abdomen nontender Musculoskeletal: No acute arthritis involving any of the joints Neurologic: normal touch/pain/proprioception and moves all extremities; + CN's not intact (Right facial droop secondary to Sanchez's palsy) Psychiatric: A+Ox3, euthymic affect Lymphatic: no cervical or axillary lymphadenopathy Results & Data Results & Data Vital Signs (Past 12 Hours) Vital Signs Temp Pulse Pulse Resp BP Pulse Ox O2 Del Method 10/31/23 11:12 36.6 C 84 18 113/71 100 Room Air 10/31/23 07:36 95 H 10/31/23 07:33 36.7 C 81 20 112/65 96 Room Air 10/31/23 04:29 36.4 C L 70 18 114/68 98 Room Air 10/31/23 01:04 73 10/31/23 01:04 36.7 C 74 18 112/75 100 Room Air 10/31/23 00:40 Room Air Laboratory Results Short CBC 10/30/23 10/31/23 Range/Units 20:05 07:20 WBC 7.80 13.55 H (4.8-10.8) K/ul Hgb 13.3 12.4 (12.0-16.0) g/dl Hct 40.6 37.9 (37.0-47.0) % Plt Count 306 268 (130-400) K/uL BMP 10/30/23 10/31/23 20:05 07:20 Sodium 137 138 Potassium 3.8 3.9 Chloride 104 106 Carbon Dioxide 27 25 BUN 12 9 Creatinine 0.85 0.72 Glucose 94 89 Calcium 9.6 8.9 Liver Function 10/30/23 Range/Units 20:05 Total Bilirubin 0.4 (0.2-1.0) mg/dl AST 20 (13-39) U/L ALT 22 (7-52) U/L Alkaline Phosphatase 66 (34-104) U/L Albumin 4.9 (3.4-5.0) gm/dl Medications Administered Current Inpatient Medications Acetaminophen (Acetaminophen 325 Mg Tab) 650 mg PO Q4H PRN PRN Reason: Pain or Fever Stop: 11/30/23 01:00 Doxycycline Hyclate (Doxycycline Hyclate 100 Mg Cap) 100 mg PO BID [facility] Stop: 11/10/23 08:59 Last Admin: 10/31/23 08:26 Dose: 100 mg Sodium Chloride (Nss) 1,000 mls @ 80 mls/hr IV .[id number] [facility] Stop: 10/31/23 13:30 Last Admin: 10/31/23 01:59 Dose: 80 mls/hr Miscellaneous Information (Pharmacist Discharge Med Rec Consult) 1 each N/A UD PRN PRN Reason: Consult Stop: 11/30/23 01:00 Nitroglycerin (Nitroglycerin Sl 0.4 Mg/Tab Tab) 0.4 mg SL Q5M PRN PRN Reason: Chest Pain Stop: 11/30/23 01:00 Prednisone (Prednisone 20 Mg Tab) 40 mg PO DAILY [facility] Stop: 11/30/23 09:44 Last Admin: 10/31/23 10:35 Dose: 40 mg
--- NOTE | 2023-10-31 19:04 | Electrocardiogram Report ---
Test Reason : Blood Pressure : */* mmHG Vent. Rate : 81 BPM Atrial Rate : 81 BPM P-R Int : 134 ms QRS Dur : 70 ms QT Int : 340 ms P-R-T Axes : -6 46 20 degrees QTcB Int : 394 ms Normal sinus rhythm Nonspecific T wave abnormality No previous ECGs available Confirmed by Garcia Clarke ([id number]) on 10/31/2023 7:04:18 PM Referred By: Confirmed By: Garcia Clarke
--- NOTE | 2023-11-01 08:32 | Discharge Summary ---
Date of Service November 01, 2023 Admission HPI Per Admitting Provider 23-year-old female with no significant past medical history comes because of right facial droop starting today morning around 5 AM. When patient woke up in the morning she noticed some slight right facial droop. She thought it was from stress. She went to football match. No other weakness or hwbv-[id number] feelings. She walked a lot during the day. Even in the photograph she noticed some slight right facial droop and decided come to the ER. Patient states she was able to eat solid food okay. But states she has some trouble swallowing liquids through straws. And when blowing the air out she noticed it was somewhat leaking from the right cheek. Her speech is okay. Denies any fevers. No headache. No dizziness. Able to close eyes tight. Able to raise eyebrows ok. Denies any numbness in the face. No fevers. No cough. No chest pain or shortness of breath. No nausea. No abdominal pain. Normal bowel and bladder movements. Her Lyme screen came back positive in the ER. Her CT head and CTA head and neck were unremarkable. Patient states on August 25 she picked up tick from her body but she thinks it was not there for long. Denies any rash. Currently resting comfortably and hemodynamic stable. Past medical history. None as per patient Past surgical history. None as per patient. Social history. Denies smoking. Alcohol occasional. No drug use. Family history. Grandfather had colon cancer. Admission Exam Per Admitting Provider Physical Exam: General- Not in distress Head- atraumatic Eyes- PERRL. ENT- oropharynx clear Neck- supple, no JVD. Lungs- clear to auscultation no wheezing or crackles Heart- regular rate and rhythm; no murmur, no gallop. Abdomen- normal bowel sounds, soft, nontender, no distension Extremities- no pretibial edema, no erytehma seen Neuro- alert, oriented x 3; PERRL, EOMI; subtle right facial droop; no dysarthria; motor 5/5 bilaterally; co ordination of movements normal,No pronator drift, Sensations intact, :Position sense intact. Principal Diagnosis Lyme disease, Sanchez's palsy on the right side Discharge Exam Lying in bed without any distress Constitutional average body habitus; not ill appearing Eyes PERRL, conjunctivae normal, anicteric sclerae ENMT external ear and nose normal, oropharynx normal Neck trachea midline, no thyromegaly Respiratory no respiratory distress Auscultation: lungs clear to auscultation bilaterally Cardiovascular Rate/Rhythm: regular rate and regular rhythm; not tachycardic Heart Sounds: normal S1 and normal S2; no murmur Extremities: no edema Gastrointestinal (Abdomen) Inspection/Auscultation: normal bowel sounds; abdomen not distended Percussion/Palpation: abdomen soft; abdomen nontender Neurologic normal touch/pain/proprioception and moves all extremities; + CN's not intact (Right facial droop secondary to Sanchez's palsy) Psychiatric A+Ox3, euthymic affect Lymphatic no cervical or axillary lymphadenopathy Discharge Data Allergies Allergy/AdvReac Type Severity Reaction Status Date / Time No Known Allergies Allergy Verified 10/30/23 20:01 Consultations 10/30/23 22:24 ED Decision to Admit Stat 10/31/23 08:00 Consult Neurology Routine Ordered Studies 10/30/23 20:00 CT angio head w con Stat CT angio neck with con Stat CT head/brain wo con Stat Hospital Course (1) Lyme disease: 23-year-old female with no significant past medical history comes because of right facial droop starting today morning around 5 AM. When patient woke up in the morning she noticed some slight right facial droop. She thought it was from stress. She went to football match. No other weakness or [id number]-[id number] feelings. She walked a lot during the day. Even in the photograph she noticed some slight right facial droop and decided come to the ER. Patient states she was able to eat solid food okay. But states she has some trouble swallowing liquids through straws. And when blowing the air out she noticed it was somew hat leaking from the right cheek. Her speech is okay. Denies any fevers. No headache. No dizziness. Able to close eyes tight. Able to raise eyebrows ok. Denies any numbness in the face. No fevers. No cough. No chest pain or shortness of breath. No nausea. No abdominal pain. Normal bowel and bladder movements. Her Lyme screen came back positive in the ER. Her CT head and CTA head and neck were unremarkable. Patient states on August 25 she picked up tick from her body but she thinks it was not there for long. Denies any rash. Currently resting comfortably and hemodynamic stable. 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 Total Time Total Time Spent Total Time Spent (In Minutes): 35 minutes Discharge Plan Discharge Items Patient Disposition: Home - Self-Care Reason For Visit: STROKE LIKE SYMPTOMS, LYME DISEASE Discharge Diagnosis: Lyme disease, Sanchez's palsy on the right side Condition on Discharge: Good Activity: Resume your previous activity Non-emergency contact: Primary Care Provider Call non-emergency contact if: you have any medication questions and your symptoms worsen Follow-up/Referrals: Aisha Rojas MD [Primary Care Provider] - (Your doctor's office will give you a call on Wednesday with an appointment within 7 days) Diet: Regular Addtl Attending Provider Instructions: Please finish the course of antibiotic Take prednisone for 4 more days Take precautions to avoid any corneal abrasion Please give appointment with your healthcare provider Pending Studies at Discharge: No Stand-Alone Forms: My [facility] [place], Smoking Cessation Medications and DC Order Prescriptions: New doxycycline hyclate 100 mg Capsule 100 mg PO BID Qty: 40 0RF prednisone 20 mg Tablet 40 mg PO DAILY Qty: 8 0RF Discharge Orders: Discharge Order (Routine); Ordered 10/31/23 Ordered By: Will Rachel Admission Data Admit Date/Time: 10/30/23 23:23 Attending Provider: Will Rachel Admit Provider: Irwin Elder Primary Care Provider: Aisha Rojas Other Providers: Irwin Elder; Heidi Lehman; James Peraza; Heidi Flanagan; Reese Cleary; Homer Felder; Neil Hull; Pasha Cisneros; Trinidad Major; Joshua Alcala; Cody Waite; Juanjose Fortune; Kayode Manley; Viviana Fung; Cristela Hollingsworth; Pasha Lucio Other Interventions: Discharge Summary Assessment (RN) Last Done: 10/31/23 12:36
[2023-11-01 11:51] LABS: iSTAT Creatinine 0.7 mg/dl (0.6-1.3); iSTAT Hemoglobin 11.2 g/dl (12.0-16.0); iSTAT Ionized Calcium 1.06 mmol/l (1.12-1.32)
== END 2023-10-31 12:45 | disposition home or self-care (01) | DRG 869 ==
LOC: ED 19:45 → 2S 23:23